=== PATIENT | female | born 1995 | race Caucasian/White ===

== ENCOUNTER 2022-07-05 16:28 | Inpatient (IN) | payer SELFPAY ==
[~2022-07-05] VITALS: Ht 167.6 cm; Wt 93.2 kg
[2022-07-05 17:27] LABS: HEMATOCRIT 39.4 % (36.0-47.0); HEMOGLOBIN 13.5 g/dl (12.0-15.5); MEAN CORPUSCULAR HEMOGLOBIN 29.3 pg (27.0-33.0); MEAN CORPUSCULAR HGB CONC 34.3 g/dl (32.0-36.5); MEAN CORPUSCULAR VOLUME 85.5 fl (80.0-96.0); PLATELET COUNT, AUTOMATED 311 10^3/uL (150-450); RED BLOOD COUNT 4.61 10^6/uL (4.00-5.40); WHITE BLOOD COUNT 11.3 10^3/uL (4.0-10.0)
[2022-07-05 17:52] LABS: RSV AMPLIFICATION NEGATIVE (NEGATIVE)
[2022-07-05 17:58] LABS: HCG, SERUM QUALITATIVE NEGATIVE (NEGATIVE)
[2022-07-05 18:17] LABS: ACETAMINOPHEN LEVEL < 2.0 UG/ML (10.0-30.0); ALBUMIN 4.2 GM/DL (3.2-5.2); ALT/SGPT 146 U/L (12-78); AMPHETAMINES LEVEL URINE NEGATIVE (NEGATIVE); BARBITURATES URINE NEGATIVE (NEGATIVE); BENZODIAZEPINES URINE NEGATIVE (NEGATIVE); BILIRUBIN,DIRECT 0.2 MG/DL (0.0-0.2); BILIRUBIN,TOTAL 0.4 MG/DL (0.2-1.0); BLOOD UREA NITROGEN 9 MG/DL (7-18); CALCIUM LEVEL 9.1 MG/DL (8.5-10.1); CANNABINOIDS URINE POSITIVE (NEGATIVE); CARBON DIOXIDE LEVEL 22 MEQ/L (21-32); CHLORIDE LEVEL 108 MEQ/L (98-107); COCAINE METABOLITE URINE NEGATIVE (NEGATIVE); CREATININE FOR GFR 1.02 MG/DL (0.55-1.30); ETHYL ALCOHOL (ETHANOL) 0.004 % (0.000-0.010); GLOMERULAR FILTRATION RATE > 60.0 (>60); GLUCOSE, FASTING 133 MG/DL (70-100); METHADONE URINE NEGATIVE (NEGATIVE); OPIATES URINE NEGATIVE (NEGATIVE); PHENCYCLIDINE URINE NEGATIVE (NEGATIVE); POTASSIUM SERUM 3.6 MEQ/L (3.5-5.1); SALICYLATE LEVEL < 1.7 MG/DL (5.0-30.0); SODIUM LEVEL 139 MEQ/L (136-145); THYROID STIMULATING HORMONE 0.577 uIU/ML (0.358-3.740); TOTAL PROTEIN 7.6 GM/DL (6.4-8.2)
[2022-07-05] MEDS ORDERED: LORazepam 2 MG TAB PO STA (22:15)
[2022-07-05] MEDS ORDERED: OLANZapine ORAL DISINTEGRATING TAB 5MG PO ONE (23:00)
[2022-07-06] MEDS ORDERED: HOME MED LIST COMPLETE! XX SCH
[2022-07-06] MEDS ORDERED: METAL LOCK LOOP XX ONE (03:02)
[2022-07-07] MEDS ORDERED: OLANZapine 10 MG TAB PO ONE (23:50)
[2022-07-08] MEDS ORDERED: HALOPERIDOL 5MG/ML VIAL (J1630 PER 1) IM ONE (01:40)
[2022-07-08] MEDS ORDERED: diphenhydrAMINE 50MG/ML VIAL (J1200) IM ONE (01:40)
[2022-07-08] MEDS ORDERED: MIDAZOLAM INJ 2MG/2ML VIAL (J2250 PER 1MG) IM ONE (01:40)
[2022-07-08 16:57] LABS: RSV AMPLIFICATION NEGATIVE (NEGATIVE)
[2022-07-08] MEDS ORDERED: MOM 30ML SUSPENSION UDC PO PRN (18:30)
[2022-07-08] MEDS ORDERED: ACETAMINOPHEN TAB 650MG DOSE (2X325MG) PO PRN (18:30)
[2022-07-08] MEDS ORDERED: traZODone 50 MG TAB PO PRN (18:30)
[2022-07-08] MEDS ORDERED: MAALOX 30 ML SUSP *UDC PO PRN (18:30)
[2022-07-09] MEDS ORDERED: NICOTINE 21MG/24HR 1 EA TRANSDERMAL TD SCH ×2 (09:00)
[2022-07-09] MEDS: MULTIVITAMINS/MINERALS THERAP 1 TAB PO SCH (09:21)
[2022-07-09] MEDS: ARIPiprazole 10 MG TAB PO SCH (09:21)
[2022-07-09] MEDS ORDERED: MAALOX 30 ML SUSP *UDC PO PRN (13:05)
[2022-07-09] MEDS ORDERED: MOM 30ML SUSPENSION UDC PO PRN (13:05)
[2022-07-09] MEDS ORDERED: IBUPROFEN 400MG TAB PO PRN (13:05)
[2022-07-09 14:31] VITALS: BP 140/85
[2022-07-09] MEDS: diphenhydrAMINE 25MG CAP PO PRN (17:17)
[2022-07-09] MEDS: OLANZapine 5 MG TAB PO PRN (17:55)
[2022-07-10 07:00] VITALS: BP 132/92
[2022-07-10] MEDS: MULTIVITAMINS/MINERALS THERAP 1 TAB PO SCH (07:31)
[2022-07-10] MEDS: ARIPiprazole 10 MG TAB PO SCH (07:31)
[2022-07-10] MEDS: LITHIUM CARBONATE 150 MG CAP PO SCH ×2 (10:11→21:29)
[2022-07-10] MEDS: OLANZapine 5 MG TAB PO PRN (11:21)
[2022-07-10 18:16] VITALS: BP 151/94
[2022-07-11] MEDS: diphenhydrAMINE 25MG CAP PO PRN ×3 (00:05→16:33)
[2022-07-11] MEDS: traZODone 50 MG TAB PO PRN (01:14)
[2022-07-11 06:31] VITALS: BP 140/86
[2022-07-11] MEDS: LITHIUM CARBONATE 150 MG CAP PO SCH ×2 (08:23→20:50)
[2022-07-11] MEDS: MULTIVITAMINS/MINERALS THERAP 1 TAB PO SCH (08:23)
[2022-07-11] MEDS: ARIPiprazole 10 MG TAB PO SCH (08:23)
[2022-07-11] MEDS: OLANZapine 5 MG TAB PO PRN ×2 (09:58→16:33)
[2022-07-11 16:09] VITALS: BP 140/92
[2022-07-12] MEDS: OLANZapine 5 MG TAB PO PRN (01:55)
[2022-07-12] MEDS: diphenhydrAMINE 25MG CAP PO PRN (01:55)
[2022-07-12] MEDS: traZODone 50 MG TAB PO PRN ×2 (01:55→23:43)
[2022-07-12] MEDS: ARIPiprazole 10 MG TAB PO SCH (07:35)
[2022-07-12] MEDS: MULTIVITAMINS/MINERALS THERAP 1 TAB PO SCH (07:35)
[2022-07-12] MEDS: LITHIUM CARBONATE 150 MG CAP PO SCH ×2 (07:35→20:32)
[2022-07-12 16:07] VITALS: BP 143/83
[2022-07-13] MEDS: LITHIUM CARBONATE 150 MG CAP PO SCH ×2 (07:58→20:34)
[2022-07-13] MEDS: MULTIVITAMINS/MINERALS THERAP 1 TAB PO SCH (07:58)
[2022-07-13] MEDS: ARIPiprazole 10 MG TAB PO SCH (07:59)
[2022-07-13 16:13] VITALS: BP 134/78
[2022-07-14 06:07] VITALS: BP 134/83
[2022-07-14] MEDS: ARIPiprazole 10 MG TAB PO SCH (10:00)
[2022-07-14] MEDS: LITHIUM CARBONATE 150 MG CAP PO SCH ×2 (10:00→21:32)
[2022-07-14] MEDS: MULTIVITAMINS/MINERALS THERAP 1 TAB PO SCH (10:00)
[2022-07-14] MEDS ORDERED: MELOXICAM (MOBIC) 7.5 MG TAB PO PRN (18:00)
[2022-07-15 06:32] VITALS: BP 134/76
[2022-07-15] MEDS: MULTIVITAMINS/MINERALS THERAP 1 TAB PO SCH (09:03)
[2022-07-15] MEDS: LITHIUM CARBONATE 150 MG CAP PO SCH (09:03)
[2022-07-15] MEDS: ARIPiprazole 10 MG TAB PO SCH (09:03)
[2022-07-15] MEDS: diphenhydrAMINE 25MG CAP PO PRN (11:45)
[2022-07-15] MEDS: OLANZapine 5 MG TAB PO PRN (11:45)
[2022-07-15] MEDS ORDERED: BENZTROPINE 1 MG TAB PO PRN (12:30)
[2022-07-15 17:35] VITALS: BP 115/57
[2022-07-15] MEDS ORDERED: LITHIUM CARBONATE 300 MG CAP PO SCH (21:00)
[2022-07-15] MEDS: QUEtiapine FUMARATE 100 MG TAB PO SCH (21:22)
[2022-07-15] MEDS: LITHIUM CARBONATE 300 MG CAP PO SCH (21:22)
[2022-07-16] MEDS: MULTIVITAMINS/MINERALS THERAP 1 TAB PO SCH (08:19)
[2022-07-16] MEDS: ARIPiprazole 10 MG TAB PO SCH (08:19)
[2022-07-16] MEDS: LITHIUM CARBONATE 300 MG CAP PO SCH ×2 (08:19→21:07)
[2022-07-16 19:15] VITALS: BP 140/80
[2022-07-16] MEDS: QUEtiapine FUMARATE 100 MG TAB PO SCH ×2 (21:00→21:06)
[2022-07-17 06:40] VITALS: BP 139/85
[2022-07-17] MEDS: MULTIVITAMINS/MINERALS THERAP 1 TAB PO SCH (08:07)
[2022-07-17] MEDS: LITHIUM CARBONATE 300 MG CAP PO SCH ×2 (08:07→20:45)
[2022-07-17] MEDS: ARIPiprazole 10 MG TAB PO SCH (08:07)
[2022-07-17] MEDS: OLANZapine 5 MG TAB PO PRN (12:07)
[2022-07-17] MEDS ORDERED: HOME MED LIST COMPLETE! XX SCH (14:00)
[2022-07-17 17:49] VITALS: BP 128/78
[2022-07-17] MEDS: QUEtiapine FUMARATE 100 MG TAB PO SCH (21:00)
[2022-07-18] MEDS: QUEtiapine FUMARATE 100 MG TAB PO SCH ×2 (03:06→20:24)
[2022-07-18] MEDS: ARIPiprazole 10 MG TAB PO SCH (10:43)
[2022-07-18] MEDS: LITHIUM CARBONATE 300 MG CAP PO SCH ×2 (10:43→20:24)
[2022-07-18] MEDS: MULTIVITAMINS/MINERALS THERAP 1 TAB PO SCH (10:44)
[2022-07-18 16:30] VITALS: BP 142/95
[2022-07-19 06:23] VITALS: BP 137/72
[2022-07-19] MEDS: MULTIVITAMINS/MINERALS THERAP 1 TAB PO SCH (08:06)
[2022-07-19] MEDS: LITHIUM CARBONATE 300 MG CAP PO SCH ×2 (08:06→20:31)
[2022-07-19] MEDS: ARIPiprazole 10 MG TAB PO SCH (08:06)
[2022-07-19 18:14] VITALS: BP 151/90
[2022-07-19] MEDS: QUEtiapine FUMARATE 100 MG TAB PO SCH (21:08)
[2022-07-19] MEDS: OLANZapine 5 MG TAB PO PRN (23:53)
[2022-07-20 06:24] VITALS: BP 125/71
[2022-07-20] MEDS: LITHIUM CARBONATE 300 MG CAP PO SCH ×2 (08:00→20:08)
[2022-07-20] MEDS: MULTIVITAMINS/MINERALS THERAP 1 TAB PO SCH (08:00)
[2022-07-20] MEDS: ARIPiprazole 10 MG TAB PO SCH (08:00)
[2022-07-20 17:38] VITALS: BP 138/56
[2022-07-20] MEDS: QUEtiapine FUMARATE 100 MG TAB PO SCH (21:00)
[2022-07-21] MEDS: ARIPiprazole 10 MG TAB PO SCH (07:49)
[2022-07-21] MEDS: LITHIUM CARBONATE 300 MG CAP PO SCH ×2 (07:49→20:32)
[2022-07-21] MEDS: MULTIVITAMINS/MINERALS THERAP 1 TAB PO SCH (07:49)
[2022-07-21 07:53] VITALS: BP 128/66
[2022-07-21] MEDS: PALIPERIDONE 6 MG ER TAB (INVEGA) PO SCH (12:12)
[2022-07-21 16:15] VITALS: BP 126/71
[2022-07-21] MEDS: OLANZapine 5 MG TAB PO PRN (16:16)
[2022-07-21] MEDS: QUEtiapine FUMARATE 100 MG TAB PO SCH (20:32)
[2022-07-22 06:38] VITALS: BP 131/87
[2022-07-22] MEDS: PALIPERIDONE 6 MG ER TAB (INVEGA) PO SCH (08:19)
[2022-07-22] MEDS: LITHIUM CARBONATE 300 MG CAP PO SCH ×2 (08:19→19:56)
[2022-07-22] MEDS: MULTIVITAMINS/MINERALS THERAP 1 TAB PO SCH (08:19)
[2022-07-22] MEDS ORDERED: PALIPERIDONE PAL 234MG/1.5ML INJ (INVEGA)(FREE PSY INPT ONLY) IM SCH (14:00)
[2022-07-22 16:25] VITALS: BP 130/71
[2022-07-22] MEDS: QUEtiapine FUMARATE 100 MG TAB PO SCH (22:13)
[2022-07-22] MEDS: OLANZapine 5 MG TAB PO PRN (22:13)
[2022-07-23 06:34] VITALS: BP 130/73
[2022-07-23] MEDS: LITHIUM CARBONATE 300 MG CAP PO SCH ×2 (07:43→20:07)
[2022-07-23] MEDS: MULTIVITAMINS/MINERALS THERAP 1 TAB PO SCH (07:43)
[2022-07-23] MEDS: PALIPERIDONE 6 MG ER TAB (INVEGA) PO SCH (07:43)
[2022-07-23] MEDS: OLANZapine 5 MG TAB PO PRN ×2 (11:50→20:08)
[2022-07-23 15:47] VITALS: BP 129/72
[2022-07-23] MEDS: QUEtiapine FUMARATE 100 MG TAB PO SCH (20:07)
[2022-07-24 06:13] VITALS: BP 124/78
[2022-07-24] MEDS: MULTIVITAMINS/MINERALS THERAP 1 TAB PO SCH (08:22)
[2022-07-24] MEDS: LITHIUM CARBONATE 300 MG CAP PO SCH ×2 (08:22→20:07)
[2022-07-24] MEDS: PALIPERIDONE 3 MG ER TAB (INVEGA) PO SCH (08:23)
[2022-07-24 18:29] VITALS: BP 142/94
[2022-07-24] MEDS: QUEtiapine FUMARATE 100 MG TAB PO SCH (20:07)
[2022-07-25] MEDS ORDERED: PALIPERIDONE PAL 156MG/1ML INJ(INVEGA)(FREE PSY INPT ONLY) IM ONE (06:00)
[2022-07-25 06:42] VITALS: BP 140/80
[2022-07-25] MEDS: MULTIVITAMINS/MINERALS THERAP 1 TAB PO SCH (08:07)
[2022-07-25] MEDS: PALIPERIDONE 3 MG ER TAB (INVEGA) PO SCH (08:07)
[2022-07-25] MEDS: LITHIUM CARBONATE 300 MG CAP PO SCH (08:07)
[2022-07-25] MEDS ORDERED: QUET100T2 PO (09:37)
[2022-07-25] MEDS ORDERED: LITH300C PO ×2 (09:37)
[2022-07-25] MEDS ORDERED: PALI1TAB2 PO (09:37)
[2022-07-25] MEDS ORDERED: BENZ-52 PO (09:37)
[2022-07-25] MEDS ORDERED: INVE234I IM (09:37)
== END 2022-07-25 12:58 | disposition home or self-care (01) | DRG 753 ==
LOC: M ED 16:28 → M ED INP 07-08 16:29 → M PSY 07-09 13:33
PROVIDERS: ADMIT Student in an Organized Health Care Education/Training Program; ATTEND Student in an Organized Health Care Education/Training Program
DX: F31.60 Bipolar disorder, current episode mixed, unspecified (principal); Z78.1 Physical restraint status; Z91.51 Personal history of suicidal behavior; Z91.410 Personal history of adult physical and sexual abuse; Z91.411 Personal history of adult psychological abuse; K21.9 Gastro-esophageal reflux disease without esophagitis; Z20.822 Contact with and (suspected) exposure to COVID-19; Z79.899 Other long term (current) drug therapy